=== PATIENT | male | born 1975 | race Caucasian/White ===

== ENCOUNTER 2016-11-20 02:36 | Observation (INO) | payer BC ==
[~2016-11-20] VITALS: Ht 172.7 cm; Wt 88.9 kg
[2016-11-20] MEDS ORDERED: ASPIRIN 81 MG CHEW (CHILDREN'S ASA) ONE (02:40)
[2016-11-20] MEDS ORDERED: RX-NITROGLYCERIN 0.4 MG TAB BTL 25'S SL ONE (02:40)
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
[2016-11-20 02:56] LABS: BASOPHILS % (AUTO) 1 % (0-10); EOSINOPHILS # (AUTO) 0.2 10^3/uL (0.0-0.3); EOSINOPHILS % (AUTO) 3 % (0-10); LYMPHOCYTES # (AUTO) 2.2 X 10^3 (1.0-4.0); LYMPHOCYTES % (AUTO) 28 % (12-44); MEAN CORPUSCULAR HEMOGLOBIN 28 PG (25-34); MEAN CORPUSCULAR HGB CONC 33 G/DL (32-36); MEAN CORPUSCULAR VOLUME 85 FL (80-99); MEAN PLATELET VOLUME 9.2 FL (7.4-10.4); MONOCYTES % (AUTO) 13 % (0-12); NEUTROPHILS # (AUTO) 4.4 X 10^3 (1.8-7.8); NEUTROPHILS % (AUTO) 56 % (42-75); PLATELET COUNT 332 10^3/uL (130-400); RED BLOOD COUNT 5.23 10^6/uL (4.35-5.85); RED CELL DISTRIBUTION WIDTH 13.6 % (10.0-14.5); WHITE BLOOD COUNT 7.8 10^3/uL (4.3-11.0)
[2016-11-20] MEDS ORDERED: ASPIRIN 81 MG CHEW (CHILDREN'S ASA) PO ONE (03:00)
[2016-11-20] MEDS ORDERED: IBUP-1780 PO (03:09)
[2016-11-20] MEDS ORDERED: METH-288 PO (03:09)
[2016-11-20] MEDS ORDERED: DOXY100C2 PO (03:09)
[2016-11-20] MEDS ORDERED: RX-NITROGLYCERIN 0.4 MG TAB BTL 25'S SL PRN (03:15)
[2016-11-20 03:21] LABS: ALANINE AMINOTRANSFERASE 32 U/L (0-55); ALBUMIN 4.1 GM/DL (3.2-4.5); ANION GAP 12 MMOL/L (5-14); ASPARTATE AMINO TRANSFERASE 22 U/L (5-34); BILIRUBIN,TOTAL 0.4 MG/DL (0.1-1.0); BLOOD UREA NITROGEN 25 MG/DL (7-18); BUN/CREATININE RATIO 30 (0-20); CALCIUM 9.5 MG/DL (8.5-10.1); CARBON DIOXIDE 22 MMOL/L (21-32); CHLORIDE 108 MMOL/L (98-107); CREATININE SERUM 0.84 MG/DL (0.60-1.30); GFR ESTIMATED > 60; GLUCOSE 83 MG/DL (70-105); LIPASE 41 U/L (8-78); MAGNESIUM 2.2 MG/DL (1.8-2.4); POTASSIUM 4.4 MMOL/L (3.6-5.0); SODIUM 142 MMOL/L (135-145); TOTAL PROTEIN 6.5 GM/DL (6.4-8.2)
[2016-11-20 03:26] LABS: TROPONIN I < 0.30 NG/ML (<0.30)
[2016-11-20] MEDS ORDERED: ENOXAPARIN 80 MG/0.8 ML (LOVENOX) SYR SC ONE (04:15)
[2016-11-20 04:45] VITALS: BP 145/91
[2016-11-20] MEDS ORDERED: NS IV 1000 ML 1,000 ML ONE (04:57)
[2016-11-20] MEDS ORDERED: CATHETER FLUSH 10 ML SYR IV PRN (05:30)
[2016-11-20] MEDS ORDERED: NS IV 1000 ML 1,000 ML IV SCH (05:30)
[2016-11-20] MEDS ORDERED: NITROGLYCERIN SUBLINGUAL 0.4 MG TAB (NITROSTAT) SL PRN (05:30)
[2016-11-20] MEDS ORDERED: CATHETER FLUSH 10 ML SYR IV SCH (06:00)
--- NOTE | 2016-11-20 07:22 | Diagnostic Imaging Report ---
INDICATION: Chest pain. FINDINGS: Single view examination of the chest fails to reveal evidence of active parenchymal pathology or pleural effusion. The cardiac silhouette is normal. IMPRESSION: Negative chest. No significant change since previous exam. Dictated by: Dictated on workstation # [id number]
[2016-11-20 07:55] VITALS: BP 113/80
[2016-11-20] MEDS ORDERED: methylPREDNISolone 125 MG (Solu-MEDROL) VIAL IVP NR (08:30)
[2016-11-20] MEDS ORDERED: ASPIRIN E.C. 325 MG (ECOTRIN) TABLET PO SCH (09:00)
[2016-11-20 11:45] VITALS: BP 113/80
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
== END 2016-11-20 08:25 | disposition home or self-care (01) ==
LOC: EDUNIT# 02:36 → ER 02:38 → UNDOADMOB 04:04 → 4TH 04:04 → UNDODISOB 10:31
PROVIDERS: ADMIT Internal Medicine; ATTEND Internal Medicine
DX: R07.89 Other chest pain (principal); R20.0 Anesthesia of skin
CPT/HCPCS: 36415; 71010; 80053; 83690; 83735; 83880; 84484; 85025; 85379; 93005; 99211; G0378

== ENCOUNTER 2016-12-16 15:33 | Outpatient (RCR) | payer BC ==
[~2016-12-16 15:33] MED LIST: DOXY100C2 PO; IBUP-1780 PO; METH-288 PO
== END 2017-01-07 15:45 | disposition home or self-care (01) ==
PROVIDERS: ATTEND Family Medicine
DX: M54.6 Pain in thoracic spine (principal)

== ENCOUNTER → 2017-01-24 | Outpatient (CLI) | payer BC ==
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
== END ==
LOC: RAD 16:13
PROVIDERS: ATTEND Internal Medicine
DX: M53.3 Sacrococcygeal disorders, not elsewhere classified (principal)
CPT/HCPCS: 72202

== ENCOUNTER → 2017-02-05 | Outpatient (CLI) | payer BC ==
--- NOTE | 2017-02-05 15:58 | Diagnostic Imaging Report ---
PROCEDURE: MR imaging cervical spine without contrast. TECHNIQUE: Multiplanar, multisequence MR imaging of the cervical spine was performed without contrast. INDICATION: Neck pain, headaches. COMPARISON: There are no prior studies available for comparison. FINDINGS: The T2 parasagittal images show the vertebral body heights and alignment to be generally within normal limits. There is desiccation of the disc at every level, and there is mild narrowing of the disc space at C3-4. Furthermore, there is a broad-based disc bulge centrally at this level. The disc compresses the ventral aspect of the thecal sac and narrows the AP diameter to 7.8 mm. There is also moderate narrowing of the neural foramen bilaterally at this level. There is a disc bulge centrally at the C4-5 level also. The AP diameter of the thecal sac is narrowed to 8.5 mm at this level. There is mild narrowing of the neural foramen bilaterally. The remainder of the cervical spine is unremarkable for spinal stenosis or nerve root encroachment. There is no abnormal signal arising from the cord or the vertebral bodies to indicate an acute abnormality. IMPRESSION: 1. There is degenerative disc and bony disease at C3-4 and to a lesser degree at C4-5. There is moderate central stenosis at both these levels, and there is narrowing of the neural foramen bilaterally, particularly at C3-4. 2. The remainder of the cervical spine is unremarkable for spinal stenosis or nerve root encroachment. 3. There is no sign of an acute bony abnormality or of a cord lesion. Dictated by: Dictated on workstation # [id number]
--- NOTE | 2017-02-05 17:53 | Diagnostic Imaging Report ---
EXAMINATION: MRI thoracic spine without contrast. INDICATION: Back pain. TECHNIQUE: Multiplanar images utilizing both T1- and T2-weighted sequences were obtained. COMPARISON: There are no previous MRI thoracic spine examinations available for comparison. FINDINGS: The T2 parasagittal images show the vertebral body heights and alignment to be within normal limits. There is desiccation of the disc at every level, and there is mild generalized narrowing of the disc space at each level. At the T8-9 level, there does appear to be a disc bulge with caudal migration of the disc material along the posterior aspect of the vertebral body of T9. The disc material compresses the ventral aspect of the thecal sac and narrows the AP diameter to 7.6 mm. There is no significant neural foraminal narrowing at this level, however. There is also a disc bulge eccentric to the left at T11-12. The disc compresses the left ventral aspect of the thecal sac but does not produce spinal stenosis nor is there any encroachment of the nerve roots. At the T12-L1 level, there is also a disc bulge eccentric to the right. The disc compresses the right ventral aspect of the thecal sac and narrows the AP diameter to 8.3 mm. There does not appear to be any significant neural foraminal narrowing at this level. There is no abnormal signal arising from the cord or the vertebral bodies to indicate an acute abnormality. There is no sign of a paraspinal mass. IMPRESSION: 1. There is a disc bulge centrally at T8-9. The disc material has migrated caudally along the dorsal aspect of the vertebral body of T9. There does appear to be moderate central stenosis at this level, but there is no nerve root encroachment. 2. There is also moderate central stenosis on the right at T12-L1. There is no nerve root encroachment at this level, however. 3. The remainder of the lumbar spine is unremarkable for spinal stenosis or nerve root encroachment. 4. There is no sign of an acute bony abnormality or of a cord lesion. Dictated by: Dictated on workstation # [id number]
== END ==
LOC: RAD 13:01
PROVIDERS: ATTEND Internal Medicine
DX: M51.24 Other intervertebral disc displacement, thoracic region (principal); M48.04 Spinal stenosis, thoracic region; M54.2 Cervicalgia
CPT/HCPCS: 72141; 72146

== ENCOUNTER 2018-02-28 15:04 | Emergency (ER) | payer BC ==
[~2018-02-28] VITALS: Ht 170.2 cm; Wt 93.0 kg
[2018-02-28] MEDS ORDERED: TETRACAINE 0.5% OPHTH SOLN 4 ML BTL (SINGLE DOSE ONLY) OU ONE (15:15)
[2018-02-28] MEDS ORDERED: BSS 15 ML IR ONE (15:15)
[2018-02-28] MEDS ORDERED: FLUORESCEIN (FLUOR-I-STRIPS) 1 MG STRP OU ONE (15:15)
[2018-02-28] MEDS ORDERED: ONDANSETRON 4 MG/2 ML (SDV) Z0FRAN IVP ONE ×2 (15:15→16:45)
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
--- NOTE | 2018-02-28 15:30 | Diagnostic Imaging Report ---
PROCEDURE: CT orbit without contrast. TECHNIQUE: Multiple contiguous axial images were obtained through the facial bones without the use of intravenous contrast. INDICATION: Grinding metal, piece of metal entered his right eye. FINDINGS: Both globes appear intact. The optic nerves are symmetrical and normal in appearance. The extraocular muscles are symmetrical and normal in appearance. Tiny bubble of air is seen in the superior right orbit. No metallic foreign body or other foreign body is seen. A mass is not seen. There is no acute bony abnormality. IMPRESSION: There is a small bubble of air seen in the superior right orbit but no foreign body is seen. Dictated by: Dictated on workstation # [id number]
[2018-02-28] MEDS ORDERED: fentaNYL INJECTION 100 MCG/2 ML AMP IVP ONE ×3 (15:45→17:15)
--- OUTSIDE RECORDS SUMMARY | 2018-02-28 16:03 | XMS REPORT | Clinical Summary ---
Author Author [facility] Address Unknown Phone Unavailable Care Team Providers Care Removable Prosthodontist Name Role Phone Cam Dubon MD PCP Source Comments Some departments are not documenting in the electronic medical record. If you do not see the information that you expected, contact Release of Information in the Health Information Management department at [phone] for further assistance in locating additional records.[facility] Allergies No Known Allergies Current Medications Prescription Sig. Disp. Refills Start End Date Status Date indomethacin SR (INDOCIN Take 75 mg by mouth twice Active SR) 75 mg capsule daily. Take with food. amphetamine-dextroampheta Take 10 mg by mouth daily Active mine XR (ADDERALL XR) 10 mg capsule tiZANidine (ZANAFLEX) 2 Take 2 mg by mouth three Active mg tablet times daily as needed. celecoxib (CELEBREX) 200 Take 1 capsule by mouth 90 capsule 3 Active mg capsuleIndications: daily. 18 Back stiffness, Polyarthralgia, Synovitis, Inflammatory arthritis, Chronic midline thoracic back pain Active Problems No known active problems Family History Medical History Relation Name Comments None Reported Brother None Reported Father None Reported Mother Relation Name Status Comments Brother Father Mother Social History Tobacco Use Types Packs/Day Years Used Date Never Smoker Smokeless Tobacco: Never Used Alcohol Use Drinks/Week oz/Week Comments No Sex Assigned at Date Recorded Not on file Last Filed Vital Signs Vital Sign Reading Time Taken Blood Pressure 130/72 06/12/2017 8:49 AM OPTOMETRIC ASSISTANT Pulse 82 06/12/2017 8:49 AM OPTOMETRIC ASSISTANT Temperature 36.9 C (98.4 F) 06/12/2017 8:49 AM OPTOMETRIC ASSISTANT Respiratory Rate 16 06/12/2017 8:49 AM OPTOMETRIC ASSISTANT Oxygen Saturation 98% 06/12/2017 8:49 AM OPTOMETRIC ASSISTANT Inhaled Oxygen - - Concentration Weight 90.1 kg (198 lb 9.6 oz) 06/12/2017 8:49 AM OPTOMETRIC ASSISTANT Height 170.2 cm (5' 7") 06/12/2017 8:49 AM OPTOMETRIC ASSISTANT Body Mass Index 31.11 06/12/2017 8:49 AM OPTOMETRIC ASSISTANT Plan of Treatment Health Maintenance Due Date Last Done Comments PHYSICAL (COMPREHENSIVE) 1980 EXAM PERTUSSIS VACCINE 1984 HIV SCREENING 1988 TETANUS VACCINE 1990 INFLUENZA VACCINE 03/09/2018 Results Not on filefrom Last 3 Months
--- OUTSIDE RECORDS SUMMARY | 2018-02-28 16:03 | XMS REPORT | Continuity of Care Document ---
Author Author [facility] Organization [facility] Address Unknown Phone Unavailable Allergies Active Description Code Type Severity Reaction Onset Reported/Identified Relationship to Patient Clinical Status Yes No Known Drug Allergies [id number] Drug Allergy Unknown N/A 09/30/2013 Medications There is no data. 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 06/04/2015 Ot X58.XXXA EXPOSURE TO OTHER SPECIFIED FACTORS, INI 06/04/[address] IN SINGLE-FAMILY (PRIVATE) 06/04/2015 Ot Y99.8 OTHER EXTERNAL CAUSE STATUS 11/20/2016 DEE KWOK MD Ot R07.89 OTHER CHEST PAIN 11/20/2016 DEE KWOK MD Ot R20.0 ANESTHESIA OF SKIN 12/18/2016 SOL BUSTAMANTE DO Ot M54.6 PAIN IN THORACIC SPINE 01/07/2017 SOL BUSTAMANTE DO Ot M54.6 PAIN IN THORACIC SPINE 01/30/2017 ANNITA DELANEY MD Ot M53.3 SACROCOCCYGEAL DISORDERS, NOT ELSEWHERE 02/05/2017 ANNITA DELANEY MD Ot M53.3 SACROCOCCYGEAL DISORDERS, NOT ELSEWHERE 02/11/2017 ANNITA DELANEY MD Ot M53.3 SACROCOCCYGEAL DISORDERS, NOT ELSEWHERE 03/19/2017 ANNITA DELANEY MD Ot M48.04 SPINAL STENOSIS, THORACIC REGION 03/19/2017 ANNITA DELANEY MD Ot M51.24 OTHER INTERVERTEBRAL DISC DISPLACEMENT, 03/19/2017 ANNITA DELANEY MD Ot M54.2 CERVICALGIA 05/07/2017 ANNITA DELANEY MD Ot M53.3 SACROCOCCYGEAL DISORDERS, NOT ELSEWHERE 05/07/2017 ANNITA DELANEY MD Ot M48.04 SPINAL STENOSIS, THORACIC REGION 05/07/2017 ELAINA VARGAS, ANNITA Kate Ot M51.24 OTHER INTERVERTEBRAL DISC DISPLACEMENT, 05/07/2017 ELAINA VARGAS, ANNITA Kate Ot M54.2 CERVICALGIA 05/12/2017 ANNITA DELANEY MD, Ot M48.04 SPINAL STENOSIS, THORACIC REGION 05/12/2017 ANNITA DELANEY MD Ot M51.24 OTHER INTERVERTEBRAL DISC DISPLACEMENT, 05/12/2017 ANNITA DELANEY MD Ot M54.2 CERVICALGIA 05/12/2017 ANNITA DELANEY MD Ot M53.3 SACROCOCCYGEAL DISORDERS, NOT ELSEWHERE 05/12/2017 ELAINA VARGAS, ANNITA Kate Ot M48.04 SPINAL STENOSIS, THORACIC REGION 05/12/2017 ANNITA DELANEY MD, Ot M51.24 OTHER INTERVERTEBRAL DISC DISPLACEMENT, 05/12/2017 ANNITA DELANEY MD, Ot M54.2 CERVICALGIA Procedures There is no data. Results Test Result Range Complete blood count (CBC) with automated white blood cell (WBC) differential - 11/20/16 02:47 Blood leukocytes automated count (number/volume) 7.8 10*3/uL 4.3-11.0 Blood erythrocytes automated count (number/volume) 5.23 10*6/uL 4.35-5.85 Venous blood hemoglobin measurement (mass/volume) 14.6 g/dL 13.3-17.7 Blood hematocrit (volume fraction) 45 % 40-54 Automated erythrocyte mean corpuscular volume 85 [foz_us] 80-99 Automated erythrocyte mean corpuscular hemoglobin (mass per erythrocyte) 28 pg 25-34 Automated erythrocyte mean corpuscular hemoglobin concentration measurement ( mass/volume) 33 g/dL 32-36 Automated erythrocyte distribution width ratio 13.6 % 10.0-14.5 Automated blood platelet count (count/volume) 332 10*3/uL 130-400 Automated blood platelet mean volume measurement 9.2 [foz_us] 7.4-10.4 Automated blood neutrophils/100 leukocytes 56 % 42-75 Automated blood lymphocytes/100 leukocytes 28 % 12-44 Blood monocytes/100 leukocytes 13 % 0-12 Automated blood eosinophils/100 leukocytes 3 % 0-10 Automated blood basophils/100 leukocytes 1 % 0-10 Blood neutrophils automated count (number/volume) 4.4 10*3 1.8-7.8 Blood lymphocytes automated count (number/volume) 2.2 10*3 1.0-4.0 Blood monocytes automated count (number/volume) 1.0 10*3 0.0-1.0 Automated eosinophil count 0.2 10*3/uL 0.0-0.3 Automated blood basophil count (count/volume) 0.0 10*3/uL 0.0-0.1 Fibrin D-dimer FEU measurement in platelet poor plasma (mass/volume) - 02:47 Fibrin D-dimer FEU measurement in platelet poor plasma (mass/volume) 0.43 ug/mL 0.00-0.49 Comprehensive metabolic panel - 11/20/16 02:47 Serum or plasma sodium measurement (moles/volume) 142 mmol/L 135-145 Serum or plasma potassium measurement (moles/volume) 4.4 mmol/L 3.6-5.0 Serum or plasma chloride measurement (moles/volume) 108 mmol/L 98-107 Carbon dioxide 22 mmol/L 21-32 Serum or plasma anion gap determination (moles/volume) 12 mmol/L 5-14 Serum or plasma urea nitrogen measurement (mass/volume) 25 mg/dL 7-18 Serum or plasma creatinine measurement (mass/volume) 0.84 mg/dL 0.60-1.30 Serum or plasma urea nitrogen/creatinine mass ratio 30 0 -20 Serum or plasma creatinine measurement with calculation of estimated glomerular filtration rate > NRG Serum or plasma glucose measurement (mass/volume) 83 mg/dL 70-105 Serum or plasma calcium measurement (mass/volume) 9.5 mg/dL 8.5-10.1 Serum or plasma total bilirubin measurement (mass/volume) 0.4 mg/dL 0.1-1.0 Serum or plasma alkaline phosphatase measurement (enzymatic activity/volume) 109 U/L 40-136 Serum or plasma aspartate aminotransferase measurement (enzymatic activity/ volume) 22 U/L 5-34 Serum or plasma alanine aminotransferase measurement (enzymatic activity/volume ) 32 U/L 0-55 Serum or plasma protein measurement (mass/volume) 6.5 g/dL 6.4-8.2 Serum or plasma albumin measurement (mass/volume) 4.1 g/dL 3.2-4.5 Magnesium - 11/20/16 02:47 Magnesium 2.2 mg/dL 1.8-2.4 Serum or plasma troponin i.cardiac measurement (mass/volume) - 11/20/16 02:47 Serum or plasma troponin i.cardiac measurement (mass/volume) < ng/ mL <0.30 Lipase - 11/20/16 02:47 Lipase 41 U/L 8-78 Serum or plasma lithium measurement (moles/volume) - 11/20/16 02:47 BNP level 36.2 pg/mL <100.0 Serum or plasma troponin i.cardiac measurement (mass/volume) - 11/20/16 05:58 Serum or plasma troponin i.cardiac measurement (mass/volume) < ng/ mL <0.30 Encounters ACCT No. Visit Date/Time Discharge Status Pt. Type Provider Facility Loc./Unit Complaint [id number] 02/05/2017 13:01:00 02/05/2017 23:59:59 CLS Outpatient ANNITA DELANEY MD [facility] RAD NECK PAIN, UPPER BACK/ THORACIC W/ UE WEAKNESS [id number] 01/24/2017 16:13:00 01/24/2017 23:59:59 CLS Outpatient ANNITA DELANEY MD [facility] RAD DEFORMITY [id number] 12/16/2016 15:33:00 01/07/2017 15:45:00 DIS Outpatient SOL BUSTAMANTE DO [facility] REHAB THORACIC BACK PAIN [id number] 11/20/2016 04:04:00 11/20/2016 10:31:00 DIS Inpatient DEE KWOK MD [facility] 4TH CHEST PAIN [id number] 09/30/2013 14:05:00 09/30/2013 16:35:00 DIS Emergency DEE KWOK MD [facility] ER RIGHT ARM PAIN/CHEST TIGHTNESS [id number] 02/28/2018 15:04:00 ACT Emergency KAVITA DARDEN APRN [facility] ER METAL TO EYE INJ [id number] 06/04/2015 15:56:00 Document Registration
[2018-02-28] MEDS: VANCOMYCIN INJECTION 1,250 MG in NS (IVPB) 250 ML IV SCH ×2 (16:40→17:54)
[2018-02-28] MEDS ORDERED: LORazepam INJ 2 MG/ML (ATIVAN) VIAL IVP PRN (17:00)
[2018-02-28 17:48] VITALS: BP 155/98
[2018-02-28] MEDS: PROMETHAZINE INJ 25 MG/ML (PHENERGAN) AMP ONE (17:54)
[2018-02-28] MEDS ORDERED: PROMETHAZINE INJ 25 MG/ML (PHENERGAN) AMP IVP ONE (18:00)
== END 2018-02-28 17:54 | disposition short-term general hospital (02) ==
LOC: EDUNIT# 15:04 → ER 15:04
DX: S05.91XA Unspecified injury of right eye and orbit, initial encounter (principal); F12.10 Cannabis abuse, uncomplicated; Z90.49 Acquired absence of other specified parts of digestive tract; W22.09XA Striking against other stationary object, initial encounter
CPT/HCPCS: 70480; 96365; 96375; 96376

== ENCOUNTER 2020-09-28 05:33 | Outpatient (CLI) | payer BC ==
[~2020-09-28] VITALS: Ht 170.2 cm; Wt 95.3 kg
[2020-09-28] MEDS ORDERED: BACL5TAB PO (12:27)
== END 2020-09-28 15:00 | disposition home or self-care (01) ==
LOC: PREOP 05:33
PROVIDERS: ATTEND Internal Medicine
DX: Z01.818 Encounter for other preprocedural examination (principal)

== ENCOUNTER 2020-10-06 07:35 | Day surgery (SDC) | payer BC ==
--- NOTE | 2020-09-26 14:49 | HISTORY AND PHYSICAL ---
DATE OF SERVICE: HISTORY OF PRESENT ILLNESS: The patient is a 46-year-old white male who I saw in the office on 09/25/2020 reporting a little over a week history of neck pain with decreased range of motion. He denies any trauma, radiates down to the upper back and towards the shoulders, but does not go into the shoulders or arms. He has noted no weakness and denies extremity numbness. He had not previously accomplished screening colonoscopy and so this was discussed. He is agreeable. He has had no bowel habit change and has noted no blood in the stool. He is not aware of any family history for colon cancer. 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 Interestingly, after he fell over 15 feet to hard surface fortunately without any significant lasting injury. Today, he denied the usual low back and body stiffness that he had experienced that required nonsteroidal therapy. FAMILY HISTORY: He is not aware of any family history for colon cancer. PHYSICAL EXAMINATION: GENERAL: Reveals a white male, appeared to be in no acute distress except when moving his head, which exhibited limited range of motion. VITAL SIGNS: Blood pressure was 150/90 at the beginning of the interview, 140/82 at the end. NECK: Revealed no JVD, adenopathy or bruits. There is stiffness of the musculature without significant pain to palpation over the neck or upper back. No spinous process pain to palpation is noted. NEUROLOGIC: Extremity strength is normal. Gait is normal. CHEST: Clear. CARDIOVASCULAR: Reveals a regular rate and rhythm without murmur, S3 or S4. EXTREMITIES: Reveal no cyanosis, clubbing or edema. ASSESSMENT AND PLAN: 1. Cervicalgia due to muscle spasm, most likely, heat, nonsteroidal medication and the patient did take baclofen of a friend, had no side effects and felt that it helped so I script for 10 mg q.6 hours p.r.n. was given in addition to refill of indomethacin SR 75 mg. 2. The patient is set up for his first screening colonoscopy, deemed to be of average risk. Prep instructions with the Suprep kit were given and questions were answered. Job ID: [id number] DocumentID: [id number] Dictated Date: 09/26/2020 10:36:32 Field Account Director Date: 09/26/2020 11:33:55 Dictated By: ANNITA DELANEY MD
[~2020-10-06] VITALS: Ht 170.2 cm; Wt 95.3 kg
[~2020-10-06 07:35] MED LIST changes: +BACL5TAB PO
[2020-10-06] MEDS ORDERED: LACTATED RINGERS 1,000 ML IV ONE (07:42)
[2020-10-06] MEDS ORDERED: LACTATED RINGERS 1,000 ML IV STA (07:56)
--- NOTE | 2020-10-06 07:56 | Pre-Op Note & Conscious Sedat ---
Pre-Operative Progress Note H&P Reviewed The H&P was reviewed, patient examined and no changes noted. Date H&P Reviewed: Oct 06, 2020 Time H&P Reviewed: 07:55 Conscious Sedation Pre-Proced ASA Score 2 For ASA 3 and 4: Consider anesthesia and medical clearance. Also, for patients with a history of failed moderate sedation consider anesthesia. Airway Lungs Heart ASA score ASA 1: a normal healthy patient ASA 2: a patient with a mild systemic disease (mid diabetes, controlled hypertension, obesity ASA 3: a patient with a severe systemic disease that limits activity (angina, COPD, prior Myocardial infarction) ASA 4: a patient with an incapacitating disease that is a constant threat to life (CHF, renal failure) ASA 5: a moribund patient not expected to survive 24 hrs. (ruptured aneurysm) ASA 6: a declared brain- patient whose organs are being harvested. For emergent operations, add the letter E after the classification Mallampati Classification Grade 2 Sedation Plan Analgesia, Amnesia, Plan communicated to team members, Discussed options with patient/fam, Discussed risks with patient/fam The patient is an appropriate candidate to undergo the planned procedure, sedation, and anesthesia. The patient immediately re-assessed prior to indication. ANNITA DELANEY MD Oct 06, 2020 07:56
[2020-10-06] MEDS ORDERED: LIDOCAINE JELLY 2% 6 ML SYRINGE MM PRN (08:00)
[2020-10-06] MEDS ORDERED: MIDAZOLAM 2 MG/2 ML (VERSED) VIAL ONE (08:00)
[2020-10-06] MEDS ORDERED: PROPOFOL INJECTION 50 ML IV ONE (08:00)
[2020-10-06 08:01] VITALS: BP 130/91
[2020-10-06] MEDS ORDERED: LIDOCAINE JELLY 2% 6 ML SYRINGE ONE (08:10)
[2020-10-06] MEDS ORDERED: proPOfol 200 MG/20 ML (DIPRIVAN) VIAL IV ONE (08:52)
[2020-10-06 09:10] VITALS: BP 118/78
[2020-10-06 09:15] VITALS: BP 121/85
[2020-10-06 09:20] VITALS: BP 125/72
--- NOTE | 2020-10-06 09:37 | Anesthesia-General Post-Op ---
MAC Patient Condition Mental Status/LOC: Same as Preop Cardiovascular: Satisfactory Nausea/Vomiting: Absent Respiratory: Satisfactory Pain: Controlled Complications: Absent Post Op Complications Complications None Follow Up Care/Instructions Patient Instructions None needed. Anesthesiology Discharge Order Discharge Order Patient is doing well, no complaints, stable vital signs, no apparent adverse anesthesia problems. No complications reported per nursing. LAURENT REAGAN CRNA Oct 06, 2020 09:37
[2020-10-06 09:40] VITALS: BP 127/95
[2020-10-06 09:55] VITALS: BP 127/95
--- NOTE | 2020-10-06 17:34 | OPERATIVE REPORT ---
DATE OF SERVICE: COLONOSCOPY SUMMARY INDICATION FOR THE PROCEDURE: Screening colon. I am his primary care provider. DESCRIPTION OF PROCEDURE: The patient was placed in the left lateral decubitus position. Prior to undergoing colonoscopy, digital rectal evaluation was performed. Anal sphincter tone was normal and the perianal reflexes intact. The prostate is normal in size and anodular to digital inspection. No abnormalities were noted on digital inspection of anal canal or distal rectal vault. The colonoscope was then inserted into the rectum and under direct visualization advanced to the cecum. The cecum was identified by identification of the ileocecal valve and cecal strap. Photographic documentation was obtained. Quality of prep was fair. FINDINGS: There was no evidence for internal or external hemorrhoids. The patient did have telangiectatic blood vessels in the anal canal. The rectum was otherwise unremarkable. One diminutive sessile polyps, 2 to 3 mm in size was noted in the mid sigmoid colon, was biopsied and ablated and submitted for histopathology. The remainder of the sigmoid colon was unremarkable. The descending colon, splenic flexure, transverse colon, ascending colon, hepatic flexure and cecum were unremarkable. ASSESSMENT: One diminutive polyp was removed from the mid sigmoid colon with otherwise normal colonoscopy of the cecum. The patient is not aware of any family history for colon cancer, so we will likely be advocating consideration for repeat screening colonoscopy in 10 years. Job ID: [id number] DocumentID: [id number] Dictated Date: 10/06/2020 09:38:16 Matchbook Maker Date: 10/06/2020 17:33:07 Dictated By: ANNITA DELANEY MD
== END 2020-10-06 09:55 | disposition home or self-care (01) ==
LOC: ENDO 07:35
PROVIDERS: ATTEND Internal Medicine
DX: Z12.11 Encounter for screening for malignant neoplasm of colon (principal); K63.5 Polyp of colon; M54.2 Cervicalgia; Z79.899 Other long term (current) drug therapy
CPT/HCPCS: 88305

== ENCOUNTER → 2023-01-16 | Outpatient (CLI) | payer OTHER, SELFPAY ==
[~2023-01-16] MED LIST changes: -DOXY100C2 PO; +DOXY100C5 PO
--- NOTE | 2023-01-16 14:34 | Diagnostic Imaging Report ---
INDICATION: Chest pain. CT coronary calcium study performed with noncontrast images of the heart followed by calculation of cardiac calcium score. Dose reduction protocol was used. The visualized portions of the mediastinum show no adenopathy. Aorta was not aneurysmal. Visualized portions of the lung armendariz were clear, the entirety of the lungs are not included on the study. There are coronary calcifications visualized in the LAD territory as well as in the right coronary artery proximally. Score of 82.7 was calculated for LAD plaquing, and 16.9 for right coronary artery plaquing. Remaining territories showed no significant calcification. IMPRESSION: Coronary calcium score was 99.6, compatible with a moderate plaque burden. Consider further workup, as clinically warranted. Dictated by: Dictated on workstation # [id number]
== END ==
LOC: RAD 13:05
PROVIDERS: ATTEND Internal Medicine
DX: R07.9 Chest pain, unspecified (principal)
CPT/HCPCS: 75571